=== PATIENT | male | born 1970 | race Hispanic/Latino ===

== ENCOUNTER 2017-10-10 15:36 | Emergency (ER) | payer BC ==
[2017-10-10 15:45] VITALS: RESP 20
[2017-10-10] MEDS ORDERED: Sodium Chloride 0.9% 1,000 ML IV STA (16:12)
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
[2017-10-10] MEDS ORDERED: Clindamycin 600mg/50ml D5W 600 MG/50 ML VIAL IVPB STA (16:14)
[2017-10-10] MEDS ORDERED: Clindamycin 600mg/50ml NS 600 MG/50 ML BAG IVPB ONE (16:29)
[2017-10-10 17:16] LABS: BASO % 0.3 % (0.0-2.0); EOS # 0.1 K/uL (0.0-0.7); EOS % 0.9 % (0.0-4.0); HEMOGLOBIN 16.1 g/dL (12.0-18.0); MEAN CELL VOLUME 90.5 fl (80.0-94.0); MEAN CORPUSCULAR HGB CONC 34.3 g/dL (33.0-37.0); MEAN PLATELET VOLUME 8.7 fl (7.2-11.7); MONO # 0.9 K/uL (0.0-0.8); NEUT # 4.7 K/uL (1.8-7.0); NEUT % 70.8 % (50.0-75.0); RBC 5.19 Mil/uL (4.40-5.90); RED CELL DISTRIBUTION WIDTH 13.1 % (11.5-14.5); WHITE BLOOD COUNT 6.6 K/uL (4.8-10.8)
[2017-10-10 17:26] LABS: ALB/GLOB RATIO 1.4 (1.0-2.1); ALBUMIN 4.4 g/dL (3.5-5.0); ALT/SGPT 52 U/L (21-72); AST/SGOT 31 U/L (17-59); BLOOD UREA NITROGEN 27 mg/dl (9-20); CALCIUM 9.4 mg/dL (8.4-10.2); GFR AFRICAN-AMERICAN > 60; GFR NON-AFRICAN AMERICAN > 60
[2017-10-10 17:36] LABS: INR 1.1 (0.9-1.2); PARTIAL THROMBOPLASTIN TIME 25.3 Seconds (25.6-37.1); PROTHROMBIN TIME 11.8 Seconds (9.8-13.1)
[2017-10-10] MEDS ORDERED: Silver Sulfadiazine 1% CREAM (50 gm) ONE (18:09)
[2017-10-10] MEDS ORDERED: Silver Sulfadiazine 1% Cream (20 gm) TOP STA (18:25)
[2017-10-10 23:14] VITALS: BP 138/81; PULSE 81; TEMP 98; O2SAT 99
--- NOTE | 2017-10-11 08:41 | CARD ---
APPROVED REPORT EKG Measurement Heart [id number] [place] 132P-1 [id number] <Conclusion> Normal sinus rhythm Normal ECG
== END 2017-10-10 20:00 | disposition home or self-care (01) ==
LOC: H.ER 15:36
DX: T24.112A Burn of first degree of left thigh, initial encounter (principal); T23.102A Burn of first degree of left hand, unspecified site, initial encounter; X19.XXXA Contact with other heat and hot substances, initial encounter; Y92.89 Other specified places as the place of occurrence of the external cause; F41.9 Anxiety disorder, unspecified
CPT/HCPCS: 80053; 82550; 84484; 85025; 85610; 85730; 87040; 93005; 96365; 96375; 96376; 99284; G0480; J2270; J7040